=== PATIENT | male | born 1960 | race Caucasian/White ===

== ENCOUNTER 2017-05-06 19:09 | Emergency (ER) | payer SELFPAY ==
[2017-05-06] MEDS ORDERED: Ketorolac 60 MG/2 ML SDV IM ONE (19:30)
--- NOTE | 2017-05-06 19:37 | EDM.PDOC ---
ED HPI GENERAL MEDICAL PROBLEM - General Chief Complaint: Back Pain or Injury Stated Complaint: BACK PAIN Time Seen by Provider: 05/06/17 19:31 Source of Information: Reports: Patient History Limitations: Reports: No Limitations - History of Present Illness INITIAL COMMENTS - FREE TEXT/NARRATIVE: HISTORY AND PHYSICAL: History of present illness: Patient is a 57-year-old male who presents to the emergency room with complaints of low back pain. Reports in early March he was crawling around on the ground for work and started to have low back pain. At that time he presented to [facility] for evaluation. They proceeded to do x-ray and CT without any significant findings. States he went to [facility] last night and this morning for pain management and received morphine IM injections times. Patient was given prescription for Valium, Flexeril, and Cataflam. He reports that none of these medications "work". He was told by a provider at [facility] that he would get an emergent MRI and cortisone injection if he came to our ER today. Reports remains malcontent that he will not be receiving a MRI or injection, a lengthy discussion was had about ER services and what I could offer him today. Since patient is driving he is agreeable to get an injection of Toradol. 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 Arnett along with neurosurgery in [place]. Patient is agreeable and voices understanding. Patient denies any urinary or bowel incontinence. Denies any numbness or tingling to his lower extremities. Denies any chest pain, shortness of breath, fever or chills. Denies any recent injury or trauma. Review of systems: As per history of present illness and below otherwise all systems reviewed and negative. Past medical history: As per history of present illness and as reviewed below otherwise noncontributory. Surgical history: As per history of present illness and as reviewed below otherwise noncontributory. Social history: No reported history of drug or alcohol abuse. Family history: As per history of present illness and as reviewed below otherwise noncontributory. Physical exam: Gen.: Nontoxic appearing 57-year-old male. Alert and oriented HEENT: Atraumatic, normocephalic, pupils reactive, negative for conjunctival pallor or scleral icterus, mucous membranes moist, throat clear, neck supple, nontender, trachea midline. Lungs: Clear to auscultation, breath sounds equal bilaterally, chest nontender. Heart: S1S2, regular, negative for clicks, rubs, or JVD. Abdomen: Soft, nondistended, nontender. Negative for masses or hepatosplenomegaly. Negative for costovertebral tenderness. Pelvis: Stable nontender. Genitourinary: Deferred. Rectal: Deferred. Extremities: Atraumatic, negative for cords or calf pain. Neurovascular unremarkable. Neuro: Awake, alert, oriented. Cranial nerves II through XII unremarkable. Cerebellum unremarkable. Motor and sensory unremarkable throughout. Exam nonfocal. Diagnostics: [] Therapeutics: Toradol IM Impression: Back Pain Definitive disposition and diagnosis as appropriate pending reevaluation and review of above. Duration: Week(s): Location: Reports: Back (Low Back pain, non-radiating) ED ROS GENERAL - Review of Systems Review Of Systems: ROS reveals no pertinent complaints other than HPI. ED EXAM,LOWER BACK PAIN/INJURY - Physical Exam Exam: See Below (See dictation) Course - Orders/Labs/Meds Orders: Active Orders 24 hr Category Date Time Status Ketorolac [Toradol] Med 05/06/17 19:30 Once 60 mg IM ONETIME ONE Medication Orders Ketorolac Tromethamine (Toradol) 60 mg IM ONETIME ONE Stop: 05/06/17 19:31 Meds: Medications Generic Name Dose Route Start Last Admin Trade Name Leandroq PRN Reason Stop Dose Admin Ketorolac Tromethamine 60 mg 05/06/17 19:30 Toradol IM 05/06/17 19:31 ONETIME ONE Departure - Departure Time of Disposition: 19:38 Disposition: Home, Self-Care 01 Condition: Good Clinical Impression: Back pain Qualifiers: Back pain location: low back pain Chronicity: unspecified Back pain laterality : midline Sciatica presence: without sciatica Qualified Code(s): M54.5 - Low back pain - Discharge Information Referrals: Lata Palacios SENIOR LIBRARIAN [Primary Care Provider] - Additional Instructions: The following information is given to patients seen in the emergency department who are being discharged to home. This information is to outline your options for follow-up care. We provide all patients seen in our emergency department with a follow-up referral. The need for follow-up, as well as the timing and circumstances, are variable depending upon the specifics of your emergency department visit. If you don't have a primary care physician on staff, we will provide you with a referral. We always advise you to contact your personal physician following an emergency department visit to inform them of the circumstance of the visit and for follow-up with them and/or the need for any referrals to a consulting specialist. The emergency department will also refer you to a specialist when appropriate. This referral assures that you have the opportunity for followup care with a specialist. All of these measure are taken in an effort to provide you with optimal care, which includes your followup. Under all circumstances we always encourage you to contact your private physician who remains a resource for coordinating your care. When calling for followup care, please make the office aware that this follow-up is from your recent emergency room visit. If for any reason you are refused follow-up, please contact the [facility] emergency department at and asked to speak to the emergency department charge nurse. [facility] pain management clinic - DR ARNETT [address] [place] [id number] [facility] [address] [place] [id number] 1. You have been given an injection of Toradol which is an anti-inflammatory, so you can drive home. Did amount of [place] has been prescribed to you. These do not take this while driving or needing to be functioning at work as this is a narcotic. You may take the medications that have already been prescribed to you by [facility]. 2. 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 Follow-up with your primary care provider in the next 1-2 days. Return to the ED as needed as discussed - My Orders Last 24 Hours: My Active Orders 05/06/17 19:30 Ketorolac [Toradol] 60 mg IM ONETIME ONE - Assessment/Plan Last 24 Hours: My Active Orders 05/06/17 19:30 Ketorolac [Toradol] 60 mg IM ONETIME ONE
[2017-05-06 20:03] VITALS: BP 119/77
== END 2017-05-06 20:08 | disposition home or self-care (01) ==
LOC: MW.ED 19:09
DX: M54.5 Low back pain (principal)
CPT/HCPCS: 96372; 99283; J1885